=== PATIENT | male | born 2005 | race Two or more races ===

== ENCOUNTER 2024-09-13 18:26 | Emergency (ER) | payer BC, OTHER ==
[~2024-09-13] VITALS: Ht 188 cm; Wt 91.6 kg
[2024-09-13 18:36] VITALS: BP 133/71; PULSE 59; RESP 16; TEMP 98; O2SAT 100
[2024-09-13] MEDS: IBUPROFEN 600 MG TAB PO ONE (19:21)
[2024-09-13] MEDS ORDERED: BACITRACIN OINT 500 UNITS/GM PKT TP ONE (19:21)
[2024-09-13] MEDS ORDERED: BACI-418 TP (19:26)
[2024-09-13] MEDS ORDERED: IBUP-2213 PO (19:26)
[2024-09-13 19:34] VITALS: BP 133/71; PULSE 59; RESP 16; TEMP 98; O2SAT 100
== END 2024-09-13 19:34 | disposition home or self-care (01) ==
LOC: MED 18:26
DX: S60.121A Contusion of right index finger with damage to nail, initial encounter (principal); Z79.899 Other long term (current) drug therapy; W23.0XXA Caught, crushed, jammed, or pinched between moving objects, initial encounter; Y93.89 Activity, other specified; Y92.89 Other specified places as the place of occurrence of the external cause; Y99.8 Other external cause status
CPT/HCPCS: 73140; 90471; 90715; 99283